=== PATIENT | male | born 1965 | race Caucasian/White ===

== ENCOUNTER 2024-08-18 10:41 | Emergency (ER) | payer MEDICAID ==
[~2024-08-18] VITALS: Ht 182.9 cm; Wt 136.4 kg
[~2024-08-18 10:41] MED LIST: HYDR-4353 PO
[2024-08-18] MEDS: HYDROcodone/acetaminophen 5mg/325mg tablet PO ONE (13:06)
[2024-08-18] MEDS: LIDOcaine 1% 30ml preserv. free vial IJ ONE (13:27)
[2024-08-18] MEDS ORDERED: HYDR-3965 PO (14:42)
[2024-08-18] MEDS ORDERED: [UNRECOGNIZED DRUG - SUPPLY] (15:12)
[2024-08-18 15:24] VITALS: BP 142/88; PULSE 82; RESP 20; TEMP 98.8; O2SAT 97
== END 2024-08-18 15:25 | disposition home or self-care (01) ==
LOC: ER 10:41
DX: S52.611A Displaced fracture of right ulna styloid process, initial encounter for closed fracture (principal); S52.591A Other fractures of lower end of right radius, initial encounter for closed fracture; J44.9 Chronic obstructive pulmonary disease, unspecified; Z56.0 Unemployment, unspecified; Z98.890 Other specified postprocedural states; W01.0XXA Fall on same level from slipping, tripping and stumbling without subsequent striking against object, initial encounter; Y93.89 Activity, other specified; Y92.89 Other specified places as the place of occurrence of the external cause; Y99.8 Other external cause status
CPT/HCPCS: 25605; 73100; 73110; 99284; A4565